=== PATIENT | female | born 2000 | race Caucasian/White ===

== ENCOUNTER 2025-05-12 15:10 | Emergency (ER) | payer OTHER, SELFPAY ==
[2025-05-12 15:12] VITALS: BP 175/119
--- NOTE | 2025-05-12 15:36 | ED.GENMED ---
History of Present Illness
General
Chief Complaint: Abdominal Pain
Source: patient
Exam Limitations: none
Time Seen by Provider: 05/12/25 15:18
Nursing documentation reviewed up to this point in time: agreed with
History of Present Illness
History of Present Illness:
Patient is a 24-year-old healthy female who presents to the emergency department with 4 days of left lower abdominal pain. Patient describes a constant ache in her left lower abdomen over the past 4 days. No clear exacerbating factors however she
does notice some improvement with certain positions, including when her knees are brought up to her chest. Prior to onset of symptoms she reports experiencing a few days of constipation however now has been having frequent, loose bowel movements.
No bloody or dark stool.
Patient denies any associated fever or chills. No episodes of vomiting however she has had mild nausea today. She reports a normal appetite over the past few days. No associated dysuria or back pain.
Her last menstrual cycle ended few days ago. She denies any abnormal vaginal bleeding or discharge. No history of STI/STDs.
Of note�patient does report experiencing similar symptoms a few months ago which lasted for about a week however then self resolved. She never sought medical care at that time.
Past History
Past History
ED Past Medical History: None
ED Past Surgical History: Other (wisdome teeth)
Social History
Tobacco: Vaping
Alcohol: Occasional
Personal: Single
Living: with family
Employment: Employed (penitentiary tech, nursing unit manager)
Family History
Family History: Other (Paternal grandmother has thyroid issues)
Review of Systems
Review of Systems
Allergies reviewed?: Yes
All Other Systems: ROS reviewed and negative except as documented in HPI and ROS
Phy Exam
Physical Exam
Physical Exam:
Vitals: Hypertensive and tachycardic on arrival although improved by my assessment, otherwise vital stable. Afebrile
General: Patient is well appearing, no acute distress. Nontoxic appearing
Skin: Warm and dry, no rashes or lesions
Head: Normocephalic, atraumatic
Eyes: Sclera nonicteric.
Throat: Protecting airway
Neck: Normal ROM, no cervical spine tenderness, no meningismus
Cardiac: Regular rate and rhythm, no murmurs.
Pulm: Normal respiratory effort. Lungs clear bilaterally
Abdomen: Abdomen soft. Mild tenderness in left lower quadrant. No rebound or guarding. No tenderness in pelvic region.
Extremities: No evidence of cyanosis or edema
Neuro: AAOx3. Grossly intact.
Psychiatric: Normal affect.
Course
Orders/Labs/Results
Orders:
Orders
05/12/25 15:35
0.9% Sodium Chloride 1000 ml [Nss] 1,000 ml IV BOLUS
Ketorolac [Toradol] 15 mg IV NOW STA
Test Result ONCE
05/12/25 15:36
CT Abd/pelvis W Iv Cont Urgent
Comment:
Reason For Exam: LLQ pain
05/12/25 15:50
Complete Blood Count/With Diff Urgent
Comprehensive Metabolic Panel Urgent
HCG, Serum Qualitative Screen Urgent
Lipase Urgent
Urinalysis Reflex To Culture Urgent
Date Specimen was Collected: 05/12/25
Time Specimen was Collected: 15:43
Abnormal Lab Results
05/12/25
15:50
MPV 10.5 H fL
(7.4-10.4)
Neutrophils % 77.9 H %
(42.2-75.2)
Lymphocytes % 15.8 L %
(20.5-51.1)
Glucose 111 H mg/dl
(70-99)
Urine Ketones 1+ A
(Negative)
05/12/25 15:50
05/12/25 15:50
Vital Signs
Initial and Last Documented VS:
Initial Vital Signs
Temp Pulse Resp BP Pulse Ox
98.3 F 125 18 175/119 99
05/12/25 15:12 05/12/25 15:12 05/12/25 15:12 05/12/25 15:12 05/12/25 15:12
Last Documented Vital Signs
Temp Pulse Resp BP Pulse Ox
98.3 F 80 18 162/68 99
05/12/25 15:12 05/12/25 18:03 05/12/25 18:03 05/12/25 18:03 05/12/25 18:03
MDM/Problems Addressed
Differential Diagnosis Includes:
Not limited to: Colitis, diverticulitis, constipation, ovarian cyst, pyelonephritis, renal colic, etc.
MDM/Problems Addressed:
24 year female with 4�5 days of left lower abdominal pain associated with loose stools. No associated fever, anorexia, vomiting. No abnormal vaginal bleeding, discharge or urinary symptoms. No history of STI/STDs.
Patient tachycardia and hypertensive on arrival, however improved by my assessment. Physical exam as above.
Patient appears very well. She has mild tenderness in left lower quadrant of abdomen without rebound or guarding.
Based on location of pain� lower suspicion for pelvic etiology. Exam not consistent with ovarian torsion. Will obtain labs, UA. Will check CT scan abdomen/pelvis. Will give IV fluids and Toradol.
Update: Labs unremarkable. Chemistry normal. HCG negative. Urine shows no evidence of red blood cells or infection. CT without acute abnormalities.
Ultimately � work up in ED negative. She remains well and nontoxic appearing. Unclear etiology however low suspicion for acute abdominal process today. Feel stable for discharge home with supportive care, bland diet, and primary care follow up.
Referral information for GI provided if symptoms persist and/or worsen. Strict return precautions discussed. Patient comfortable with plan.
Chronic conditions affecting care:
N/A
Acute Exacerbation and/or Progression of Chronic Illness:
N/A
*Pulse Oximetry
SaO2: 99
Oxygen Mode of Delivery: Room air
Patient hypoxic: no
*EKG
Interpreted by ED Provider?: NA
*Pipeline Inspector Interpretation
Rate: Pipeline Inspector- N/A
*Critical Care Note
Total Time (30-74mins, 75-104mins- exclusive of procedures): Not Applicable
ED Attending Note
-
Portions of this chart may have been created with voice recognition software.� Occasional wrong word or��sound alike� substitutions may have occurred due to the inherent limitations of voice recognition software.
Discharge Plan
Departure
Patient Disposition: Home (Routine Discharge)
Date of Disposition: 05/12/25
Time of Disposition: 17:41
Patient with high blood pressure during this ER visit?: Yes
Discharge Problem:
Abdominal pain
Instructions: Abdominal Pain, BLOOD PRESSURE
Prescriptions:
No Action
famotidine 20 MG tablet
20 mg PO BID Qty: 28 0RF
Rx Instructions:
Take 20 mg twice a day for 14 days
ascorbic acid (vitamin C) [Vitamin C] 500 MG tablet
1,000 mg PO BID Qty: 56 0RF
Rx Instructions:
Take 1,000 mg twice a day for 14 days
aspirin 81 MG tablet,chewable
81 mg PO DAILY Qty: 14 0RF
Rx Instructions:
Take 81 mg daily for 14 days
zinc sulfate 220 MG capsule
220 mg PO DAILY Qty: 14 0RF
Rx Instructions:
Take 220 mg daily for 14 days
cholecalciferol (vitamin D3) 1,000 UNITS tablet
2,000 units PO DAILY Qty: 28 0RF
Rx Instructions:
Take 2,000 units daily for 14 days
melatonin 5 MG tablet
5 mg PO HS Qty: 14 0RF
Rx Instructions:
Take 5 mg daily at bedtime for 14 days
Referrals:
Atilio Cid MD [Active, Gastroenterology]
Claudette Moss MD [Active, Gynecology]
Aide Dennison CRNP [Family Provider, General] - Follow up in 1 week
Activity Restrictions/Additional Instructions:
RETURN TO THE EMERGENCY DEPARTMENT WITH ANY FEVER, CHILLS, PERSISTENT/WORSENING ABDOMINAL PAIN, INTRACTABLE NAUSEA/VOMITING, LACK OF APPETITE, WORSENING IN CURRENT SYMPTOMS, OR ANY OTHER CONCERNS
- As discussed, your lab work, urinalysis, and CT scan showed no acute abnormalities today in the emergency department.
- Please stay well-hydrated and follow a bland diet over the next few days. You can slowly advance your diet as tolerated. You can take Motrin and/or Tylenol as needed for pain.
- Follow-up with GI for further evaluation/management if symptoms persist. Contact information for [facility] has been provided for you as well to establish care.
Monitor your symptoms closely and return to the emergency department with any acute worsening/new symptoms or any other concerns
Interventions
Interventions:
*Risk Screen - Suicide Last Done: 05/12/25 15:12
*General Assessment Last Done: 05/12/25 15:12
*ED- Fall Risk Assessment Last Done: 05/12/25 15:44
*Nursing Disposition Last Done: 05/12/25 18:04
BG-Sjofft-Psqhvyehuu Assessment Last Done: 05/12/25 15:44
Discharge Date and Time
Discharge Date/Time: 05/12/25 18:07
Print Language: INDONESIAN
[2025-05-12] MEDS: TORADOL 15 MG IV (15:58)
[2025-05-12] MEDS: NSS 1000 IV (15:58)
[2025-05-12 16:14] LABS: Hematocrit 42.8 % (37.0-47.0); Hemoglobin 14.8 g/dL (12.0-16.0); Mean Corp Hgb Conc. 34.6 g/dL (33.0-37.0); Mean Corpuscular Volume 86.6 fL (81.0-99.0); Nucleated Red Blood Cells % 0 %; Platelet Count 221 10^3/uL (130-400); Red Cell Dist. Width 12.2 % (11.5-14.5)
[2025-05-12 16:36] LABS: Urine Character Clear (Clear)
[2025-05-12 16:38] LABS: HCG, Serum Qualitative Screen Negative
[2025-05-12 16:44] LABS: ALT (SGPT) 30 U/L (0-35); AST (SGOT) 22 U/L (14-36); Albumin 4.7 g/dl (3.5-5.0); Alkaline Phosphatase 70 U/L (38-126); Blood Urea Nitrogen 11 mg/dl (7-17); Calcium 9.9 mg/dl (8.4-10.2); Carbon Dioxide 26 mmol/L (22-30); Chloride 103 mmol/L (98-107); Glucose 111 mg/dl (70-99); Lipase 58 U/L (23-300); Potassium 4.1 mmol/L (3.5-5.1); Sodium 136 mmol/L (135-145); Total Protein 8.0 g/dl (6.3-8.2); eGFR > 60.00
[2025-05-12 18:03] VITALS: BP 162/68
== END 2025-05-12 18:07 | disposition home or self-care (01) ==
LOC: EMR 15:10
PROVIDERS: Physician Assistant; EMERGENCY PHYSICIAN Emergency Medicine; FAMILY PHYSICIAN Nurse Practitioner Primary Care
DX: R10.32 Left lower quadrant pain (principal); I10 Essential (primary) hypertension; K59.00 Constipation, unspecified; F17.290 Nicotine dependence, other tobacco product, uncomplicated; Z83.49 Family history of other endocrine, nutritional and metabolic diseases
CPT/HCPCS: 99284; 96374; 96361; 74177; 80053; 81003; 83690; 84703; 85025; Q9967